=== PATIENT | female | born 1985 ===

== ENCOUNTER → 2023-03-15 | Outpatient (CLI) | payer BC ==
[2023-03-17 15:12] LABS: HPV 16 Negative (Negative); HPV 18 Negative (Negative); HPV OTHER HR TYPES Negative (Negative)
== END | disposition home or self-care (01) ==
LOC: LAB 14:12 → LAB SHORT 14:12
PROVIDERS: Family Medicine
DX: Z12.4 Encounter for screening for malignant neoplasm of cervix (principal)
CPT/HCPCS: 87624; G0145